=== PATIENT | female | born 1940 | race Caucasian/White ===

== ENCOUNTER 2023-03-30 18:39 | Inpatient (IN) ==
[2023-03-30 19:46] LABS: Basophils # (Auto) 0.04 K/mcL (0.00-0.30); Basophils % (Auto) 0.3 % (0.0-2.0); Eosinophils # (Auto) 0.03 K/mcL (0.00-0.70); Eosinophils % (Auto) 0.2 % (0.0-7.0); Hematocrit 34.6 % (34.1-44.9); Hemoglobin 11.7 g/dL (11.2-15.7); Lymphocytes # (Auto) 0.64 K/mcL (1.50-4.80); Lymphocytes % (Auto) 5.3 % (15.5-49.0); Mean Cell Volume 98.9 fL (80.0-100.0); Mean Corpuscular HGB Conc 33.8 g/dL (31.0-36.0); Mean Platelet Volume 10.2 fL (8.8-12.5); Monocytes # (Auto) 0.85 K/mcL (0.10-0.90); Neutrophils % (Auto) 86.7 % (38.0-78.0); Platelet Count 306 K/mcL (140-440); WBC 12.2 K/mcL (4.5-11.0)
--- NOTE | 2023-03-30 19:55 | Emergency Department Note ---
SOB HPI General Chief Complaint: Shortness of Breath/Dyspnea Stated Complaint: SOB Time Seen by Provider: 03/30/23 18:50 Source: patient Mode of arrival: ambulatory Limitations: no limitations History of Present Illness HPI Narrative: Narrative: Patient presents to the ED with complaints of shortness of breath for the past week. She reports a history of pulmonary fibrosis. States she used to be on supplemental oxygen via nasal cannula continuously but was taken off a year ago by her insurance that they state that she no longer needed it. Patient went to [facility] a few days ago and they did a chest x-ray and they advised her that she had some fluid on her heart so she went over to [facility] where she was admitted to the hospital and discharged on 03/28/2023. At that time she was found to have elevated troponins and found to be in CHF exacerbation. Patient was not have any chest pains at that time. Patient had her Lasix increased to twice a day x3 days. She was discharged home. Patient states that her pulse ox was reading 84% today but then she changed the batteries and it was up to 97%. She states whenever she walks she gets extremely tired and short of breath. She states that she had nausea and vomiting which subsided yesterday as she has not vomited today. She denies any fever, chills, cardiac chest pain, heart palpitation, abdominal pain, diarrhea, dysuria, hematuria, urinary frequency. She does report a cough. Patient denies any other alleviating or aggravating factors. Related Data Home Medications Medication Instructions Recorded Confirmed prednisone 5 mg tablet 5 mg PO QDAY 04/27/15 03/27/23 coenzyme Q10 300 mg capsule 300 mg PO QDAY 06/03/17 03/27/23 cyanocobalamin (vitamin B-12) 5,000 mcg PO QDAY 09/04/17 03/27/23 1,000 mcg tablet (Vitamin B-12) allopurinol 300 mg tablet 300 mg PO QDAY 12/29/19 03/27/23 rosuvastatin 5 mg tablet 5 mg PO QDAY 06/05/22 03/27/23 cholecalciferol (vitamin D3) 25 25 mcg PO QDAY 07/30/22 03/27/23 mcg (1,000 unit) capsule (Vitamin D3) metoprolol succinate 25 mg 25 mg PO QDAY 07/30/22 03/27/23 tablet,extended release 24 hr denosumab 60 mg/mL subcutaneous 60 mg subcut .[id number] 01/21/23 03/27/23 syringe (Prolia) omeprazole 20 mg capsule,delayed 20 mg PO QDAY PRN Heartburn 01/21/23 03/27/23 release Aspirin 81 mg PO QDAY 03/24/23 03/27/23 docusate sodium 100 mg capsule 100 mg PO BID PRN 03/24/23 03/27/23 Previous Rx's Medication Instructions Recorded Four-wheeled walker with seat #1 ea 02/01/21 acetaminophen 500 mg tablet 1,000 mg PO Q8 #90 tabs 08/06/22 furosemide 40 mg tablet (Lasix) 40 mg PO QDAY #90 tabs 08/21/22 potassium chloride 10 mEq 10 meq PO QDAY #90 tabs 10/17/22 tablet,extended release metformin 500 mg tablet,extended 500 mg PO QPM #90 tabs 10/23/22 release 24 hr lisinopril 10 mg tablet 10 mg PO QDAY #90 tabs 01/21/23 levothyroxine 75 mcg tablet 75 mcg PO QAM #90 tabs 01/29/23 methocarbamol 500 mg tablet 500 mg PO TIDP PRN Muscle Spasm 01/30/23 #20 tabs polyethylene glycol 3350 17 gram 17 g PO DAILYP PRN Constipation 01/30/23 oral powder packet (HealthyLax) #14 ea montelukast 10 mg tablet 10 mg PO QDAY #30 tabs 02/26/23 tramadol 50 mg tablet 50 - 100 mg PO Q4HP PRN Pain #60 03/18/23 tabs Allergies Allergy/AdvReac Type Severity Reaction Status Date / Time oxycodone AdvReac Intermediate Other Verified 03/30/23 18:45 Penicillins AdvReac Intermediate syncope Verified 03/30/23 18:45 diphenhydramine AdvReac Mild delirium Verified 03/30/23 18:45 [From Benadryl] Erythromycin Base AdvReac Mild Nausea Verified 03/30/23 18:45 fenofibrate AdvReac Mild leg cramps Verified 03/30/23 18:45 dapsone AdvReac Unknown Unknown Verified 03/30/23 18:45 Review of Systems ROS ROS Narrative: Narrative: All systems ED: reviewed and negative except as stated. [facility] Narrative Patient History Narrative: Narrative: Medical/Surgical/Family History All Active Problems (Updated 03/30/23 @ 20:31 by Elvis Baer DO) CHF exacerbation (Acute) Exertional dyspnea (Acute) Acute respiratory failure with hypoxia (Acute) Pulmonary hypertension (Chronic) Allergy (Chronic) Productive cough (Acute) Chest congestion (Acute) Shortness of breath (Acute) Anemia (Chronic) Chronic obstructive pulmonary disease (Chronic) Benign neoplasm of colon (Chronic) Connective tissue disease (Chronic) Diabetes mellitus, type II (Chronic) Fall (Chronic 12/26/14) Hematuria (Chronic) Hypercholesterolemia (Chronic 01/26/15) Hypertension, essential (Chronic) Joint pain (Chronic 12/28/14) Menopausal and postmenopausal disorder (Chronic) Osteoarthritis (Chronic) Osteoporosis (Chronic) Pemphigus (Chronic) Pain in joint, shoulder region (Chronic) Congenital abnormality (Chronic) History of (Chronic) History of removal of cyst (Chronic) History of intraocular lens implant (Chronic) Compression fracture (Chronic) Hemochromatosis (Chronic) Vitamin D deficiency (Chronic) 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) Right orbit fracture (Chronic) Right rib fracture (Chronic) CHF (congestive heart failure) (Chronic) Bullous pemphigoid (Chronic) Hyperparathyroidism (Chronic) Pulmonary fibrosis (Chronic) Laceration (Chronic) CKD stage G1/A1, GFR > 90 and albumin creatinine ratio <30 mg/g (Chronic) Familial hemochromatosis (Chronic) CKD stage G4/A2, GFR 15-29 and albumin creatinine ratio 30-299 mg/g (Chronic) Medicare annual wellness visit, subsequent (Chronic) Right knee DJD (Chronic) Annual physical exam (Chronic) Hypothyroidism (Chronic) Dyslipidemia (Chronic) Elevated serum creatinine (Chronic) Special needs due to difficulty walking unassisted (Chronic) 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, sacral and sacrococcygeal region (Chronic) Radiculopathy, lumbar region (Acute) Hypercalcemia (Acute) Bilateral knee pain (Acute) Primary hyperparathyroidism (Chronic) CKD stage G3b/A1, GFR 30-44 and albumin creatinine ratio <30 mg/g (Chronic) Influenza A (Acute) Mixed sleep apnea (Chronic) Complex sleep apnea syndrome (Chronic) Chronic pain (Acute) Friction burn (Acute) Morbilliform rash (Acute) Hypocalciuric hypercalcemia (Acute) CKD (chronic kidney disease) stage 4, GFR 15-29 ml/min (Acute) Elevated parathyroid hormone (Acute) GERD (gastroesophageal reflux disease) (Acute) Odynophagia (Acute) Back injury (Acute) Status post left knee surgery (Acute) Age-related osteoporosis with current pathological fracture, vertebra(e), initial encounter for fracture (Acute) Thoracic back pain (Acute) Rhinitis (Chronic) Post-nasal drip (Chronic) Medical History Age-related osteoporosis with current pathological fracture, vertebra(e), initia l encounter for fracture Anemia Arthropathy of left sacroiliac joint Benign neoplasm of colon Bilateral knee pain Bullous pemphigoid Continues on 5 mg a day of prednisone Was treated with steroids and dapsone in the past Patient cannot recall a triggering event or medication -is biopsy-proven CHF (congestive heart failure) Chronic obstructive pulmonary disease Chronic pain CKD stage G1/A1, GFR > 90 and albumin creatinine ratio <30 mg/g 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 L4-5 w/sed 06/08/201910/24 Vertebro Aug. T12 w/sed 10/25/2015 Family History Mother , 54 Cerebrovascular accident Diabetes mellitus NOS Essential hypertension Father , 84 Malignant neoplasm of lung Social History Smoking Status: Former smoker Alcohol Intake Frequency: holiday/special occasion only Substance Use: does not use Exam Narrative Narrative: Narrative: General Limitations: no limitations General appearance: Absent in distress ENT ENT: Present normal oropharynx and mucous membranes moist Respiratory Respiratory: Present normal lung sounds bilaterally; Absent respiratory distress, rales/crackles, wheezes, stridor or accessory muscle use Cardiovascular Cardiovascular: Present regular rate and normal rhythm Adbominal Abdominal: Present soft; Absent tenderness Extremities Extremities: Present normal capillary refill Back Back: Absent CVA tenderness (R) or CVA tenderness (L) Neurological Neurological: Present alert and oriented X3 Psychiatric Psychiatric: Present normal affect and normal mood Skin Skin: Present warm (WNL); Absent intact Course Course Course Narrative: Patient was evaluated for complaints of shortness of breath. I received patient's discharge summary from [facility] and reviewed the summary along with the labs that were done at that time. Repeat x-ray was obtained today with image reviewed myself which is so CHF changes unremarkable from previous chest x-ray. Labs were obtained show the patient BNP was up over 3300. Renal function was near baseline. Patient's white cell count was unchanged from previous slightly elevated at 12. Procalcitonin was slightly elevated. Chest x-ray was negative for pneumonia. Patient's lactic acid within normal limits. Her pH was also within normal limits. Patient was maintaining adequate oxygen saturation on room air at rest. However when we got to ambulate her patient dropped below 87% on room air and it took her several minutes to recover back up above 90%. Believe patient to have respiratory failure secondary to CHF exacerbation. Case was discussed with hospitalist who has agreed to admit the patient. Plan of care was discussed with patient and family and they expressed verbal understanding and agreement of plan Reevaluation(s) Reevaluation #1: Patient reynold hemodynamic stable. No new complaints at this time. Time: 20:01 Consultations Consultation #1: Case discussed with hospitalist, Dr. Sanders, who has agreed to admit the patient Time: 20:45 Vital Signs Vital signs: Vital Signs Temperature 98.3 F 03/30/23 18:41 Pulse Rate 90 03/30/23 18:41 Respiratory Rate 18 03/30/23 18:41 Blood Pressure 130/63 03/30/23 18:41 Pulse Oximetry (%) 95 03/30/23 18:41 Oxygen Delivery Method Room Air 03/30/23 18:41 Temperature 98.3 F 03/30/23 18:41 Pulse Rate 78 03/30/23 19:47 Respiratory Rate 20 03/30/23 19:47 Blood Pressure 130/57 03/30/23 19:47 Pulse Oximetry (%) 91 03/30/23 19:47 Oxygen Delivery Method Room Air 03/30/23 18:41 MDM MDM Narrative Medical decision making narrative: Narrative: Differential Diagnosis Differential Diagnosis: CHF exacerbation, pneumonia, PE Medical Records Medical records reviewed: Yes I reviewed the patient's medical records. Lab Data Lab results reviewed: Yes I reviewed the patient's lab results. 03/30/23 19:10 Labs: Lab Results 03/30/23 03/30/23 03/30/23 Range/Units 19:10 19:10 19:10 WBC 12.2 H (4.5-11.0) K/mcL RBC 3.50 L (3.59-5.38) M/mcL Hgb 11.7 (11.2-15.7) g/dL Hct 34.6 (34.1-44.9) % POC Hct (36-48) MCV 98.9 (80.0-100.0) fL MCH 33.4 (26.0-34.0) pg MCHC 33.8 (31.0-36.0) g/dL RDW 14.0 (11.5-14.5) % Plt Count 306 (140-440) K/mcL MPV 10.2 (8.8-12.5) fL Immature Gran % (Auto) 0.5 (0.0-0.5) % Neut % (Auto) 86.7 H (38.0-78.0) % Lymph % (Auto) 5.3 L (15.5-49.0) % [place] % (Auto) 7.0 (1.0-12.0) % Eos % (Auto) 0.2 (0.0-7.0) % Baso % (Auto) 0.3 (0.0-2.0) % Lymph # (Auto) 0.64 L (1.50-4.80) K/mcL [place] # (Auto) 0.85 (0.10-0.90) K/mcL Eos # (Auto) 0.03 (0.00-0.70) K/mcL Baso # (Auto) 0.04 (0.00-0.30) K/mcL Immature Gran # 0.06 H (0.00-0.05) K/mcl Absolute Neutrophils 10.55 H (1.80-8.00) K/mcL POC VBG pH 7.47 H (7.32-7.42) POC VBG pCO2 at Temp 38.2 L (41-51) POC VBG pO2 21 L (25-40) POC VBG HCO3 27.8 (24-28) POC VBG Total CO2 29.0 (25-29) POC Venous O2 Sat 40.0 (40-70) POC VBG Base Excess 4.0 H* (-2-2) VBG Lactic Acid 1.7 (0.5-2) POC Sodium (133-145) POC Potassium (3.3-5.1) POC Chloride (96-108) POC Total CO2 (22-30) POC BUN (6-20) POC Creatinine (0.6-1.2) POC Glucose (70-105) POC WB Ioniz Calcium (1.16-1.32) NT-Pro-B Natriuret Pep (<450.0) pg/mL Procalcitonin 0.94 H (<0.10) ng/mL POC Troponin I (0.00-0.08) 03/30/23 03/30/23 03/30/23 Range/Units 19:21 19:53 20:06 WBC (4.5-11.0) K/mcL RBC (3.59-5.38) M/mcL Hgb (11.2-15.7) g/dL Hct (34.1-44.9) % POC Hct 37.0 38.0 (36-48) MCV (80.0-100.0) fL MCH (26.0-34.0) pg MCHC (31.0-36.0) g/dL RDW (11.5-14.5) % Plt Count (140-440) K/mcL MPV (8.8-12.5) fL Immature Gran % (Auto) (0.0-0.5) % Neut % (Auto) (38.0-78.0) % Lymph % (Auto) (15.5-49.0) % [place] % (Auto) (1.0-12.0) % Eos % (Auto) (0.0-7.0) % Baso % (Auto) (0.0-2.0) % Lymph # (Auto) (1.50-4.80) K/mcL [place] # (Auto) (0.10-0.90) K/mcL Eos # (Auto) (0.00-0.70) K/mcL Baso # (Auto) (0.00-0.30) K/mcL Immature Gran # (0.00-0.05) K/mcl Absolute Neutrophils (1.80-8.00) K/mcL POC VBG pH (7.32-7.42) POC VBG pCO2 at Temp (41-51) POC VBG pO2 (25-40) POC VBG HCO3 (24-28) POC VBG Total CO2 (25-29) POC Venous O2 Sat (40-70) POC VBG Base Excess (-2-2) VBG Lactic Acid (0.5-2) POC Sodium 133 137 (133-145) POC Potassium 7.9 H* 4.1 (3.3-5.1) POC Chloride 101 101 (96-108) POC Total CO2 28.0 28.0 (22-30) POC BUN 77 H 57 H (6-20) POC Creatinine 1.7 H 1.7 H (0.6-1.2) POC Glucose 143 H 132 H (70-105) POC WB Ioniz Calcium 0.98 L 1.01 L (1.16-1.32) NT-Pro-B Natriuret Pep 3301.0 H (<450.0) pg/mL Procalcitonin (<0.10) ng/mL POC Troponin I (0.00-0.08) / Range/Units 20:06 WBC (4.5-11.0) K/mcL RBC (3.59-5.38) M/mcL Hgb (11.2-15.7) g/dL Hct (34.1-44.9) % POC Hct (36-48) MCV (80.0-100.0) fL MCH (26.0-34.0) pg MCHC (31.0-36.0) g/dL RDW (11.5-14.5) % Plt Count (140-440) K/mcL MPV (8.8-12.5) fL Immature Gran % (Auto) (0.0-0.5) % Neut % (Auto) (38.0-78.0) % Lymph % (Auto) (15.5-49.0) % [place] % (Auto) (1.0-12.0) % Eos % (Auto) (0.0-7.0) % Baso % (Auto) (0.0-2.0) % Lymph # (Auto) (1.50-4.80) K/mcL [place] # (Auto) (0.10-0.90) K/mcL Eos # (Auto) (0.00-0.70) K/mcL Baso # (Auto) (0.00-0.30) K/mcL Immature Gran # (0.00-0.05) K/mcl Absolute Neutrophils (1.80-8.00) K/mcL POC VBG pH (7.32-7.42) POC VBG pCO2 at Temp (41-51) POC VBG pO2 (25-40) POC VBG HCO3 (24-28) POC VBG Total CO2 (25-29) POC Venous O2 Sat (40-70) POC VBG Base Excess (-2-2) VBG Lactic Acid (0.5-2) POC Sodium (133-145) POC Potassium (3.3-5.1) POC Chloride (96-108) POC Total CO2 (22-30) POC BUN (6-20) POC Creatinine (0.6-1.2) POC Glucose (70-105) POC WB Ioniz Calcium (1.16-1.32) NT-Pro-B Natriuret Pep (<450.0) pg/mL Procalcitonin (<0.10) ng/mL POC Troponin I 0.05 (0.00-0.08) Radiology Data Radiology results reviewed: Yes I reviewed the patient's radiology results. Radiology results narrative: Chest x-ray obtained with image reviewed myself, consistent with CHF EKG Data EKG #1: EKG attestation: Yes I reviewed and interpreted this EKG. EKG shows normal: sinus rhythm Rate: normal Rhythm: NSR [place]/QRS: normal ST segment elevation in: None ST segment depression in: None QTc: normal QRS morphology: Present normal Interpretation: no acute changes Core Measures AMI Core Measures Followed: Yes Discharge Plan Patient/Caregiver Discharge Instructions Pt seen by SIGN WRITER HAND/PA only: No Clinical Impression: Exertional dyspnea, Acute respiratory failure with hypoxia CHF exacerbation Qualifiers: Heart failure type: unspecified Qualified Code(s): I50.9 - Heart failure, unspecified Patient Disposition: Xfer As Outpt/Obs ([facility]) Condition: Fair Follow up with: Hipolito Bennett MD [Primary Care Provider] - Prescriptions: No Action furosemide [Lasix] 40 mg tablet 40 mg PO QDAY Qty: 90 1RF potassium chloride 10 mEq tablet extended release 10 meq PO QDAY Qty: 90 1RF metformin 500 mg tablet extended release 24 hr 500 mg PO QPM Qty: 90 1RF lisinopril 10 mg tablet 10 mg PO QDAY Qty: 90 4RF levothyroxine 75 mcg tablet 75 mcg PO QAM Qty: 90 1RF montelukast 10 mg tablet 10 mg PO QDAY Qty: 30 12RF prednisone 5 mg tablet 5 mg PO QDAY Rx Instructions: administer with food or milk (DME) Four-wheeled walker with seat See Rx Instructions .Route .MEDSUPPLY Qty: 1 0RF Rx Instructions: As directed rosuvastatin 5 mg tablet 5 mg PO QDAY tramadol 50 mg tablet 50 - 100 mg PO Q4HP PRN (Reason: Pain) Qty: 60 0RF coenzyme Q10 300 mg capsule 300 mg PO QDAY cyanocobalamin (vitamin B-12) [Vitamin B-12] 1,000 mcg tablet 5,000 mcg PO QDAY allopurinol 300 mg tablet 300 mg PO QDAY Aspirin 81 mg PO QDAY docusate sodium 100 mg capsule 100 mg PO BID PRN metoprolol succinate 25 mg Tablet Extended Release 24 Hr 25 mg PO QDAY cholecalciferol (vitamin D3) [Vitamin D3] 25 mcg (1,000 unit) Capsule 25 mcg PO QDAY acetaminophen 500 mg Tablet 1,000 mg PO Q8 Qty: 90 0RF omeprazole 20 mg capsule,delayed release(DR/EC) 20 mg PO QDAY PRN (Reason: Heartburn) Rx Instructions: take 30 minutes prior to supper. Prolia 60 mg/mL Syringe 60 mg SUBCUT .[id number] methocarbamol 500 mg Tablet 500 mg PO TIDP PRN (Reason: Muscle Spasm) Qty: 20 0RF polyethylene glycol 3350 [HealthyLax] 17 gram Powder In Packet 17 g PO DAILYP PRN (Reason: Constipation) Qty: 14 0RF
[2023-03-30 19:58] LABS: POC Calcium, Ionized 0.98 (1.16-1.32); POC Creatinine 1.7 (0.6-1.2); POC Potassium 7.9 (3.3-5.1)
--- NOTE | 2023-03-30 20:00 | XRay Report ---
HISTORY: Short of breath FINDINGS: There is moderate pulmonary fibrosis throughout both lung todd. This is a chronic finding. No consolidating infiltrate has developed. There is no apparent mass. No pleural effusion is present. The heart is mildly enlarged and has diminished in size since 03/27/23. No adenopathy is detected.. Moderate osteoarthritis is present in both shoulders. IMPRESSION: Moderate pulmonary fibrosis with little change. Improved cardiomegaly Interpreted and Authenticated by: Gautam Shaffer 03/30/23
[2023-03-30 20:11] LABS: POC Calcium, Ionized 1.01 (1.16-1.32); POC Creatinine 1.7 (0.6-1.2); POC Potassium 4.1 (3.3-5.1)
--- NOTE | 2023-03-30 21:20 | Internal Med History&Physical ---
HPI History of Present Illness Patient information: Note initiated : 03/30/23 at 9:08 pm Service Date, if different from initiated Date: [] Patient: Enma Dodson a 82 y/o F admitted on for Shortness of breath. Chief Complaint: [] History of present illness: Ms. Dodson is a 82 year old F Presents ED with generalized weakness and shortness of breath. This is been going on for about a week. She first saw her hog handler and was sent to the ER over concerns for possible CHF. She went to the ED and was evaluated and told to increase her Lasix for a few days. She still feels short of breath so came back into the ED. In the ED she was evaluated she was fine on room air as far as her oxygen but when she ambulated she dropped down to 85% per my discussion with the ER physician and a tech 5 minutes for to come up to 90. Family is concerned about her going home. She is afebrile and has not complained of fevers but complains of chills. She does also have had nausea and vomiting she has a headache. She is got rhinorrhea and sinus congestion. She has had a productive cough mostly of clear sputum but today she had thick green sputum per her granddaughter. She denies any increased water weight. Chest x-ray shows fibrosis similar to previous no obvious infiltrate or edema. She had a cardiac spec study in May 2022 which showed an EF of 45%, an echo 5-6 weeks prior to that showed ejection fraction of 60%. She had a rapid flu and COVID in ED which were negative. She had a mild leukocytosis at 12.7. Her procalcitonin ED was elevated at 0.9. She was on oxygen in the past that was years ago but has not had been on it in a while. Although she states over the past months she feels like she has been more short of breath. Review of Systems: Pertinent positives as above. Denies headache/fever//chest or abdominal pain/diarrhea. Remaining 10 point review of system reviewed negative. PHYSICAL EXAM General: Alert, Awake, No acute Distress, obese Eyes/N/T: EOMI, no scleral icterus, PERRL, dry MM Head/Neck: neck supple, full ROM, normocephalic atraumatic CV: RRR, No murmurs, normal s1/s2 Pulm: fines rales b/l, mildly diminished, no wheezing, no respiratory distress Abd: soft, nontender, +BS x4 Ext: no clubbing/cyanosis, trace b/l LE edema, nontender Neuro: Alert, CN 2-12 grossly intact, no focal deficits, moves all extremities, , sensations intact b/l upper/lower Psychiatric: Skin: warm/dry, normal color PFSH PFSH All Active Problems (Updated 03/30/23 @ 20:31 by Elvis Baer DO) CHF exacerbation (Acute) Exertional dyspnea (Acute) Acute respiratory failure with hypoxia (Acute) Pulmonary hypertension (Chronic) Allergy (Chronic) Productive cough (Acute) Chest congestion (Acute) Shortness of breath (Acute) Anemia (Chronic) Chronic obstructive pulmonary disease (Chronic) Benign neoplasm of colon (Chronic) Connective tissue disease (Chronic) Diabetes mellitus, type II (Chronic) Fall (Chronic 12/26/14) Hematuria (Chronic) Hypercholesterolemia (Chronic 01/26/15) Hypertension, essential (Chronic) Joint pain (Chronic 12/28/14) Menopausal and postmenopausal disorder (Chronic) Osteoarthritis (Chronic) Osteoporosis (Chronic) Pemphigus (Chronic) Pain in joint, shoulder region (Chronic) Congenital abnormality (Chronic) History of (Chronic) History of removal of cyst (Chronic) History of intraocular lens implant (Chronic) Compression fracture (Chronic) Hemochromatosis (Chronic) Vitamin D deficiency (Chronic) 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) Right orbit fracture (Chronic) Right rib fracture (Chronic) CHF (congestive heart failure) (Chronic) Bullous pemphigoid (Chronic) Hyperparathyroidism (Chronic) Pulmonary fibrosis (Chronic) Laceration (Chronic) CKD stage G1/A1, GFR > 90 and albumin creatinine ratio <30 mg/g (Chronic) Familial hemochromatosis (Chronic) CKD stage G4/A2, GFR 15-29 and albumin creatinine ratio 30-299 mg/g (Chronic) Medicare annual wellness visit, subsequent (Chronic) Right knee DJD (Chronic) Annual physical exam (Chronic) Hypothyroidism (Chronic) Dyslipidemia (Chronic) Elevated serum creatinine (Chronic) Special needs due to difficulty walking unassisted (Chronic) 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, sacral and sacrococcygeal region (Chronic) Radiculopathy, lumbar region (Acute) Hypercalcemia (Acute) Bilateral knee pain (Acute) Primary hyperparathyroidism (Chronic) CKD stage G3b/A1, GFR 30-44 and albumin creatinine ratio <30 mg/g (Chronic) Influenza A (Acute) Mixed sleep apnea (Chronic) Complex sleep apnea syndrome (Chronic) Chronic pain (Acute) Friction burn (Acute) Morbilliform rash (Acute) Hypocalciuric hypercalcemia (Acute) CKD (chronic kidney disease) stage 4, GFR 15-29 ml/min (Acute) Elevated parathyroid hormone (Acute) GERD (gastroesophageal reflux disease) (Acute) Odynophagia (Acute) Back injury (Acute) Status post left knee surgery (Acute) Age-related osteoporosis with current pathological fracture, vertebra(e), initial encounter for fracture (Acute) Thoracic back pain (Acute) Rhinitis (Chronic) Post-nasal drip (Chronic) Medical History Age-related osteoporosis with current pathological fracture, vertebra(e), initial encounter for fracture Anemia Arthropathy of left sacroiliac joint Benign neoplasm of colon Bilateral knee pain Bullous pemphigoid Continues on 5 mg a day of prednisone Was treated with steroids and dapsone in the past Patient cannot recall a triggering event or medication -is biopsy-proven CHF (congestive heart failure) Chronic obstructive pulmonary disease Chronic pain CKD stage G1/A1, GFR > 90 and albumin creatinine ratio <30 mg/g 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 L4-5 w/sed 06/08/201910/24 Vertebro Aug. T12 w/sed 10/25/2015 Family History Mother , 54 Cerebrovascular accident Diabetes mellitus NOS Essential hypertension Father , 84 Malignant neoplasm of lung Social History marital status: education level: high school occupational status: retired other: 2 children and 2 grandchildren smoking status: Former smoker smoking status start date: 11/10/1958 smoking status stop date: 11/10/06 alcohol intake frequency: holiday/special occasion only substance use type: does not use MEDS/ALLERGIES Home Medications and Allergies Home Medications Medication Instructions Recorded Confirmed Type prednisone 5 mg tablet 5 mg PO QDAY 04/27/15 03/27/23 History coenzyme Q10 300 mg capsule 300 mg PO QDAY 06/03/17 03/27/23 History cyanocobalamin (vitamin B-12) 5,000 mcg PO QDAY 09/04/17 03/27/23 History 1,000 mcg tablet (Vitamin B-12) allopurinol 300 mg tablet 300 mg PO QDAY 12/29/19 03/27/23 History Four-wheeled walker with seat #1 ea 02/01/21 03/27/23 Rx rosuvastatin 5 mg tablet 5 mg PO QDAY 06/05/22 03/27/23 History cholecalciferol (vitamin D3) 25 25 mcg PO QDAY 07/30/22 03/27/23 History mcg (1,000 unit) capsule (Vitamin D3) metoprolol succinate 25 mg 25 mg PO QDAY 07/30/22 03/27/23 History tablet,extended release 24 hr acetaminophen 500 mg tablet 1,000 mg PO Q8 #90 tabs 08/06/22 03/27/23 Rx furosemide 40 mg tablet (Lasix) 40 mg PO QDAY #90 tabs 08/21/22 03/27/23 Rx potassium chloride 10 mEq 10 meq PO QDAY #90 tabs 10/17/22 03/27/23 Rx tablet,extended release metformin 500 mg tablet,extended 500 mg PO QPM #90 tabs 10/23/22 03/27/23 Rx release 24 hr denosumab 60 mg/mL subcutaneous 60 mg subcut .[id number] 01/21/23 03/27/23 History syringe (Prolia) lisinopril 10 mg tablet 10 mg PO QDAY #90 tabs 01/21/23 03/27/23 Rx omeprazole 20 mg capsule,delayed 20 mg PO QDAY PRN Heartburn 01/21/23 03/27/23 History release levothyroxine 75 mcg tablet 75 mcg PO QAM #90 tabs 01/29/23 03/27/23 Rx methocarbamol 500 mg tablet 500 mg PO TIDP PRN Muscle Spasm 01/30/23 03/27/23 Rx #20 tabs polyethylene glycol 3350 17 gram 17 g PO DAILYP PRN Constipation 01/30/23 03/27/23 Rx oral powder packet (HealthyLax) #14 ea montelukast 10 mg tablet 10 mg PO QDAY #30 tabs 02/26/23 03/27/23 Rx tramadol 50 mg tablet 50 - 100 mg PO Q4HP PRN Pain #60 03/18/23 03/27/23 Rx tabs Aspirin 81 mg PO QDAY 03/24/23 03/27/23 History docusate sodium 100 mg capsule 100 mg PO BID PRN 03/24/23 03/27/23 History Allergies Allergy/AdvReac Type Severity Reaction Status Date / Time oxycodone AdvReac Intermediate Other Verified 03/30/23 18:45 Penicillins AdvReac Intermediate syncope Verified 03/30/23 18:45 diphenhydramine AdvReac Mild delirium Verified 03/30/23 18:45 [From Benadryl] Erythromycin Base AdvReac Mild Nausea Verified 03/30/23 18:45 fenofibrate AdvReac Mild leg cramps Verified 03/30/23 18:45 dapsone AdvReac Unknown Unknown Verified 03/30/23 18:45 EXAM Constitutional Vitals: Temp Pulse Resp BP Pulse Ox O2 Del Method 98.3 F 87 24 H 152/77 94 Room Air 03/30/23 18:41 03/30/23 20:47 03/30/23 21:06 03/30/23 21:02 03/30/23 20:47 03/30/23 18:41 DATA Data Completed and Pending Labs: Labs from last 24 hours 03/30/23 03/30/23 03/30/23 20:06 20:06 19:53 WBC RBC Hgb Hct POC Hct 38.0 37.0 MCV MCH MCHC RDW Plt Count MPV Immature Gran % (Auto) Neut % (Auto) Lymph % (Auto) [place] % (Auto) Eos % (Auto) Baso % (Auto) Lymph # (Auto) [place] # (Auto) Eos # (Auto) Baso # (Auto) Immature Gran # Absolute Neutrophils POC VBG pH POC VBG pCO2 at Temp POC VBG pO2 POC VBG HCO3 POC VBG Total CO2 POC Venous O2 Sat POC VBG Base Excess VBG Lactic Acid POC Sodium 137 133 POC Potassium 4.1 7.9 H* POC Chloride 101 101 POC Total CO2 28.0 28.0 POC BUN 57 H 77 H POC Creatinine 1.7 H 1.7 H POC Glucose 132 H 143 H POC WB Ioniz Calcium 1.01 L 0.98 L NT-Pro-B Natriuret Pep Procalcitonin POC Troponin I 0.05 03/30/23 03/30/23 03/30/23 19:21 19:10 19:10 WBC RBC Hgb Hct POC Hct MCV MCH MCHC RDW Plt Count MPV Immature Gran % (Auto) Neut % (Auto) Lymph % (Auto) [place] % (Auto) Eos % (Auto) Baso % (Auto) Lymph # (Auto) [place] # (Auto) Eos # (Auto) Baso # (Auto) Immature Gran # Absolute Neutrophils POC VBG pH 7.47 H POC VBG pCO2 at Temp 38.2 L POC VBG pO2 21 L POC VBG HCO3 27.8 POC VBG Total CO2 29.0 POC Venous O2 Sat 40.0 POC VBG Base Excess 4.0 H* VBG Lactic Acid 1.7 POC Sodium POC Potassium POC Chloride POC Total CO2 POC BUN POC Creatinine POC Glucose POC WB Ioniz Calcium NT-Pro-B Natriuret Pep 3301.0 H Procalcitonin 0.94 H POC Troponin I 03/30/23 19:10 WBC 12.2 H RBC 3.50 L Hgb 11.7 Hct 34.6 POC Hct MCV 98.9 MCH 33.4 MCHC 33.8 RDW 14.0 Plt Count 306 MPV 10.2 Immature Gran % (Auto) 0.5 Neut % (Auto) 86.7 H Lymph % (Auto) 5.3 L [place] % (Auto) 7.0 Eos % (Auto) 0.2 Baso % (Auto) 0.3 Lymph # (Auto) 0.64 L [place] # (Auto) 0.85 Eos # (Auto) 0.03 Baso # (Auto) 0.04 Immature Gran # 0.06 H Absolute Neutrophils 10.55 H POC VBG pH POC VBG pCO2 at Temp POC VBG pO2 POC VBG HCO3 POC VBG Total CO2 POC Venous O2 Sat POC VBG Base Excess VBG Lactic Acid POC Sodium POC Potassium POC Chloride POC Total CO2 POC BUN POC Creatinine POC Glucose POC WB Ioniz Calcium NT-Pro-B Natriuret Pep Procalcitonin POC Troponin I A/P Narrative A/P Narrative: A: *Acute hypoxic respiratory failure: 2/2 underlying pulm fibrosis/copd + possible PNA *Possible PNA: *Pulmonary fibrosis/COPD: Follows with Dr. Lee, on prednisone *h/o CHF: *DM2: *HTN: *CKD IIIb-IV: *GERD: *Hypothyroidism: cont synthroid *CHERRY: cpap at home *Obesity pulm: BMI 31 *Generalized weakness/deconditioning: * P: -prn O2 and wean as able -IS/Acapella, prn nebs, RT -IV abx, pending BC/SC -strep ag -CT chest for better delineation of pulmonary parenchyma -UA -Monitor urine output/renal function -Monitor and replace electrolytes. -check tsh -cont lasix -cont home prednisone -SSI -Continue home CAMILO/BB -Home medication reconciliation -PT/OT -suspect pt needs home O2 for chronic pulmonary conditions -ppx: Lovenox / home ppi Time Spent With Patient Time: Total time spent is greater than 50% in coordination of care (as documented) at patient's floor/unit and/or counseling patient: Initial: Total time with patient: 75 - 90 minutes
[2023-03-30 21:47] LABS: ALT/SGPT 8 U/L (<40); AST/SGOT 16 U/L (<32); Albumin 3.3 gm/dL (3.2-5.2); Alkaline Phosphatase 75 U/L (39-117); Bilirubin,Direct < 0.2 mg/dL (0-0.3); Bilirubin,Total 0.4 mg/dL (0.1-1.0); Blood Urea Nitrogen 46 mg/dL (8-23); Calcium 8.7 mg/dL (8.6-10.4); Carbon Dioxide 23 mmol/L (22-30); Chloride 100 mmol/L (96-108); Globulin 3.4 gm/dL (2.2-3.7); Glomerular Filtration Rate 32; Glucose 137 mg/dL (70-105); Lactate Dehydrogenase 218 U/L (135-225); Phosphorous 2.3 mg/dL (2.5-4.5); Triglycerides 108 mg/dL (<150); Uric Acid 5.8 mg/dL (2.5-8.0)
[2023-03-30] MEDS ORDERED: IPRATROPIUM/ALBUTEROL 3 ML AMPUL.NEB NEB PRN (22:14)
[2023-03-30] MEDS ORDERED: POTASSIUM CHLORIDE 40 MEQ in DEXTROSE 5% IN WATER 500 ML IV PRN (22:14)
[2023-03-30] MEDS ORDERED: LABETALOL 5 MG/ML ML IV PRN (22:14)
[2023-03-30] MEDS ORDERED: POTASSIUM CHLORIDE 20 MEQ TABLET PO PRN ×2 (22:14)
[2023-03-30] MEDS ORDERED: SENNOSIDES 1 TABLET PO PRN (22:14)
[2023-03-30] MEDS ORDERED: cefTRIAXone 1 GM in DEXTROSE 5% IN WATER 50 ML IV SCH (22:14)
[2023-03-30] MEDS ORDERED: ONDANSETRON 4 MG/2 ML VIAL IV PRN (22:14)
[2023-03-30] MEDS ORDERED: POLYETHYLENE GLYCOL 3350 17 GM PACKET PO PRN (22:14)
[2023-03-30] MEDS ORDERED: DEXTROSE 31 GM ORAL.SUSP PO PRN (22:14)
[2023-03-30] MEDS ORDERED: MAGNESIUM SULFATE 2 GM/50 ML BAG IV PRN (22:14)
[2023-03-30] MEDS ORDERED: DEXTROSE 50% 50 ML VIAL IV PRN (22:14)
[2023-03-30] MEDS ORDERED: cefTRIAXone 1 GM VIAL ONE (22:26)
[2023-03-30] MEDS ORDERED: AZITHROMYCIN 500 MG VIAL IV ONE (22:26)
[2023-03-30] MEDS ORDERED: IPRATROPIUM/ALBUTEROL 3 ML AMPUL.NEB NEB ONE (22:28)
[2023-03-30] MEDS: IPRATROPIUM/ALBUTEROL 3 ML AMPUL.NEB NEB SCH (22:30)
[2023-03-30 22:58] LABS: Appearance,Urine CLEAR (Clear); Bilirubin,Urine Negative (Negative); Color,Urine YELLOW; Culture Indicated,Urine No; Glucose,Urine (UA) Negative (Negative); Ketones,Urine Negative (Negative); Leukocyte Esterase,Urine 75 /uL (Negative); Mucus,Urine FEW /hpf; Nitrate,Urine Negative (Negative); Protein,Urine Negative (Negative); Specific Gravity,Urine 1.012 (1.000-1.035); Urine Amorphous Crystals FEW /hpf; Urine Blood Negative (Negative); Urine RBC < 1 /hpf (0-3); Urine Squamous Epithelial Cell < 1 /hpf (0-4); Urine Transitional Epi Cells < 1 /hpf (0-2); Urine WBC 6 /hpf (0-4); Urobilinogen,Urine Negative
[2023-03-30] MEDS: 0.9 % SODIUM CHLORIDE 10 ML SYRINGE IV SCH ×2 (23:08→23:53)
[2023-03-30] MEDS: AZITHROMYCIN 500 MG in DEXTROSE 5% IN WATER 250 ML IV SCH (23:52)
[2023-03-31] MEDS: ACETAMINOPHEN 325 MG TABLET PO PRN ×2 (02:22→22:15)
[2023-03-31] MEDS ORDERED: ACETAMINOPHEN 325 MG TABLET PO ONE (02:24)
[2023-03-31] MEDS: 0.9 % SODIUM CHLORIDE 10 ML SYRINGE IV SCH ×3 (04:38→20:41)
[2023-03-31 06:03] LABS: Hematocrit 31.5 % (34.1-44.9); Hemoglobin 10.9 g/dL (11.2-15.7); Mean Cell Volume 98.4 fL (80.0-100.0); Mean Corpuscular HGB Conc 34.6 g/dL (31.0-36.0); Mean Platelet Volume 9.9 fL (8.8-12.5); Platelet Count 273 K/mcL (140-440); Red Cell Distribution Width 13.9 % (11.5-14.5); WBC 12.7 K/mcL (4.5-11.0)
[2023-03-31] MEDS ORDERED: IPRATROPIUM/ALBUTEROL 3 ML AMPUL.NEB NEB ONE (06:06)
[2023-03-31] MEDS: IPRATROPIUM/ALBUTEROL 3 ML AMPUL.NEB NEB SCH ×4 (06:19→21:26)
[2023-03-31 06:25] LABS: ALT/SGPT 7 U/L (<40); AST/SGOT 12 U/L (<32); Albumin 2.8 gm/dL (3.2-5.2); Alkaline Phosphatase 64 U/L (39-117); Bilirubin,Direct 0.2 mg/dL (<0.3); Bilirubin,Total 0.6 mg/dL (0.1-1.0); Blood Urea Nitrogen 41 mg/dL (8-23); Calcium 8.4 mg/dL (8.6-10.4); Carbon Dioxide 24 mmol/L (22-30); Chloride 100 mmol/L (96-108); Globulin 2.8 gm/dL (2.2-3.7); Glomerular Filtration Rate 35; Glucose 159 mg/dL (70-105); Lactate Dehydrogenase 176 U/L (135-225); Phosphorous 1.8 mg/dL (2.5-4.5); Triglycerides 82 mg/dL (<150); Uric Acid 6.4 mg/dL (2.5-8.0)
[2023-03-31] MEDS: INSULIN LISPRO 1 UNIT/0.01 ML UNIT SQ SCH ×4 (07:18→20:41)
--- NOTE | 2023-03-31 07:22 | Internal Med Progress Note ---
SUBJECTIVE Subjective Patient information: Note initiated : 03/31/23 at 7:18 am Service Date, if different from initiated Date: [] Patient: Enma Ddoson a 82 y/o F admitted on 03/30/23 for Shortness of breath. Chief Complaint: [] Interval history: History of present illness: Ms. Dodson is a 82 year old F Presents ED with generalized weakness and shortness of breath. This is been going on for about a week. She first saw her linux systems administrator and was sent to the ER over concerns for possible CHF. She went to the ED and was evaluated and told to increase her Lasix for a few days. She still feels short of breath so came back into the ED. In the ED she was evaluated she was fine on room air as far as her oxygen but when she ambulated she dropped down to 85% per my discussion with the ER physician and a tech 5 minutes for to come up to 90. Family is concerned about her going home. She is afebrile and has not complained of fevers but complains of chills. She does also have had nausea and vomiting she has a headache. She is got rhinorrhe a and sinus congestion. She has had a productive cough mostly of clear sputum but today she had thick green sputum per her granddaughter. She denies any increased water weight. Chest x-ray shows fibrosis similar to previous no obvious infiltrate or edema. She had a cardiac spec study in May 2022 which showed an EF of 45%, an echo 5-6 weeks prior to that showed ejection fraction of 60%. She had a rapid flu and COVID in ED which were negative. She had a mild leukocytosis at 12.7. Her procalcitonin ED was elevated at 0.9. She was on oxygen in the past that was years ago but has not had been on it in a while. Although she states over the past months she feels like she has been more short of breath. 03/31 Patient denies fever chills nausea vomiting headache this morning. However the nurse did record a fever overnight. Patient says her cough seems to be loosening up a bit. No noticeable shortness of breath while at rest in bed. CT chest pending. Leukocytosis similar to yesterday. Hypophosphatemia Review of Systems: Pertinent positives as above. Denies headache/fever//chest or abdominal pain/diarrhea. PHYSICAL EXAM General: Alert, Awake, No acute Distress, obese Eyes/N/T: EOMI, no scleral icterus, Head/Neck: neck supple, full ROM, CV: RRR, No murmurs, Pulm: fines rales b/l, mildly diminished, no wheezing, no respiratory distress Abd: soft, nontender, +BS x4 Ext: no clubbing/cyanosis, trace b/l LE edema, nontender Neuro: Alert, no focal deficits, moves all extremities, , sensations intact b/l upper/lower Psychiatric: Skin: warm/dry, normal color Constitutional Vitals: Vital Signs Temp Pulse Resp BP Pulse Ox O2 Del Method 99.7 F H 87 17 114/68 95 Room Air 03/31/23 04:29 03/31/23 04:29 03/31/23 04:29 03/31/23 04:29 03/31/23 04:29 03/31/23 04:29 Period Temp Pulse Resp BP Sys/Duong Pulse Ox O2 Del Method O2 Flow Rate Last 24 Hr 98.3 F-101.5 F 36-97 16-26 114-152/56-85 84-96 Room Air-Room Air Intake and Output 03/30/23 03/31/23 03/31/23 19:59 03:59 11:59 Intake Total 300 400 Output Total 100 Balance 300 300 Weight 78.925 kg 80.422 kg Intake & Output: Intake & Output 03/30/23 03/31/23 03/31/23 19:59 03:59 11:59 Intake Total 300 400 Output Total 100 Balance 300 300 Weight 78.925 kg 80.422 kg Intake: IV 300 Zithromax 500 mg In Dextrose 5% 250 in Water 250 ml @ 250 mls/hr IV Q24H DOUG Rx#:[id number] Rocephin 1 gm In Dextrose 5% in 50 Water 50 ml @ 100 mls/hr IV Q24H DOUG Rx#:[id number] Oral 400 Output: Void Amount 100 Other: Urine Appearance Clear Urine Color Yellow Urine Odor Strong OBJ DATA Labs 03/31/23 05:10 03/31/23 05:10 Labs: Abnormal Lab Results 03/31/23 03/31/23 03/31/23 05:10 05:10 05:10 WBC 12.7 H RBC 3.20 L Hgb 10.9 L Hct 31.5 L MCH 34.1 H Neut % (Auto) Lymph % (Auto) Lymph # (Auto) Immature Gran # Absolute Neutrophils POC VBG pH POC VBG pCO2 at Temp POC VBG pO2 POC VBG Base Excess POC Potassium POC BUN BUN 41 H Creatinine 1.4 H POC Creatinine Glucose 159 H POC Glucose Calcium 8.4 L POC WB Ioniz Calcium Phosphorus 1.8 L NT-Pro-B Natriuret Pep Total Protein 5.6 L Albumin 2.8 L Procalcitonin 1.20 H Ur Leukocyte Esterase Urine WBC Amorphous Crystals Urine Mucus 03/30/23 03/30/23 03/30/23 22:24 20:06 20:06 WBC RBC Hgb Hct MCH Neut % (Auto) Lymph % (Auto) Lymph # (Auto) Immature Gran # Absolute Neutrophils POC VBG pH POC VBG pCO2 at Temp POC VBG pO2 POC VBG Base Excess POC Potassium POC BUN 57 H BUN 46 H Creatinine 1.5 H POC Creatinine 1.7 H Glucose 137 H POC Glucose 132 H Calcium POC WB Ioniz Calcium 1.01 L Phosphorus 2.3 L NT-Pro-B Natriuret Pep Total Protein Albumin Procalcitonin Ur Leukocyte Esterase 75 A Urine WBC 6 H Amorphous Crystals Few A Urine Mucus Few A 03/30/23 03/30/23 03/30/23 19:53 19:21 19:10 WBC RBC Hgb Hct MCH Neut % (Auto) Lymph % (Auto) Lymph # (Auto) Immature Gran # Absolute Neutrophils POC VBG pH 7.47 H POC VBG pCO2 at Temp 38.2 L POC VBG pO2 21 L POC VBG Base Excess 4.0 H* POC Potassium 7.9 H* POC BUN 77 H BUN Creatinine POC Creatinine 1.7 H Glucose POC Glucose 143 H Calcium POC WB Ioniz Calcium 0.98 L Phosphorus NT-Pro-B Natriuret Pep 3301.0 H Total Protein Albumin Procalcitonin Ur Leukocyte Esterase Urine WBC Amorphous Crystals Urine Mucus 03/30/23 03/30/23 19:10 19:10 WBC 12.2 H RBC 3.50 L Hgb Hct MCH Neut % (Auto) 86.7 H Lymph % (Auto) 5.3 L Lymph # (Auto) 0.64 L Immature Gran # 0.06 H Absolute Neutrophils 10.55 H POC VBG pH POC VBG pCO2 at Temp POC VBG pO2 POC VBG Base Excess POC Potassium POC BUN BUN Creatinine POC Creatinine Glucose POC Glucose Calcium POC WB Ioniz Calcium Phosphorus NT-Pro-B Natriuret Pep Total Protein Albumin Procalcitonin 0.94 H Ur Leukocyte Esterase Urine WBC Amorphous Crystals Urine Mucus Meds: Medications Acetaminophen (Acetaminophen 325 Mg Tablet) 650 mg PO Q6HP PRN; Protocol PRN Reason: Per Pain Protocol/Fever > 101 Last Admin: 03/31/23 02:22 Dose: 650 mg Albuterol/Ipratropium (Ipratropium/Albuterol 3 Ml Ampul.Neb) 3 ml NEB Q4HP PRN PRN Reason: Shortness Of Breath Last Admin: 03/31/23 06:09 Dose: 3 ml Albuterol/Ipratropium (Ipratropium/Albuterol 3 Ml Ampul.Neb) 3 ml NEB Q8 DOUG Stop: 04/01/23 14:01 Last Admin: 03/31/23 07:11 Dose: Not Given Ceftriaxone Sodium (Ceftriaxone 1 Gm Vial) 1 gm IV Q24H DOUG Dextrose (Dextrose 50% 50 Ml Vial) 0 ml IV UD PRN PRN Reason: Per Sliding Scale Diagnostic Test (Pha) (Accu-Chek 1 Each Strip) 1 each FS ACHS DOUG Last Admin: 03/31/23 07:14 Dose: 1 each Docusate Sodium (Docusate Sodium 100 Mg Capsule) 100 mg PO BID DOUG Enoxaparin Sodium (Enoxaparin 40 Mg/0.4 Ml Syringe) 40 mg SQ DAILY DOUG Glucose (Dextrose 31 Gm Oral.Susp) 15 gm PO PRN PRN PRN Reason: Hypoglycemia Potassium Chloride 40 meq/ (Dextrose) 520 mls @ 130 mls/hr IV UD PRN PRN Reason: Potassium < 3 Magnesium Sulfate (Magnesium Sulfate) 2 gm in 50 mls @ 50 mls/hr IV UD PRN PRN Reason: Magnesium </= 1.6 Azithromycin 500 mg/ Dextrose 250 mls @ 250 mls/hr IV Q24H DOUG; Protocol Stop: 04/01/23 23:13 Last Infusion: 03/31/23 00:52 Dose: Infused Insulin Human Lispro (Insulin Lispro 1 Unit/0.01 Ml Unit) 0 unit SQ ACHS DOUG; Protocol Last Admin: 03/31/23 07:18 Dose: 2 units Labetalol HCl (Labetalol 5 Mg/Ml Ml) 0 mg IV Q2HP PRN PRN Reason: Hypertension Ondansetron HCl (Ondansetron 4 Mg/2 Ml Vial) 4 mg IV Q4HP PRN PRN Reason: Nausea And Vomiting Polyethylene Glycol (Polyethylene Glycol 3350 17 Gm Packet) 17 gm PO DAILYP PRN PRN Reason: Constipation Potassium Chloride (Potassium Chloride 20 Meq Tablet) 40 meq PO UD PRN PRN Reason: Potssium is 3-3.5 Potassium Chloride (Potassium Chloride 20 Meq Tablet) 40 meq PO UD PRN PRN Reason: Potassium < 3 Senna (Sennosides 1 Tablet) 2 tab PO DAILYP PRN PRN Reason: Constipation Sodium Chloride (0.9 % Sodium Chloride 10 Ml Syringe) 10 ml IV Q8 DOUG Last Admin: 03/31/23 04:38 Dose: 10 ml A/P Narrative A/P Narrative: A: *Acute hypoxic respiratory failure: 2/2 underlying pulm fibrosis/copd + PNA +/- ?cardiac component -on room air while in bed resting -CT chest with b/l patchy airspace dz *PNA: -strep/covid neg -elevatec PCT *Sepsis: 2/2 above -febrile o/n, leukocytosis *Pulmonary fibrosis/COPD: Follows with Dr. Lee, on prednisone *h/o CHF: *DM2: *HTN: *CKD IIIb-IV: *GERD: *Hypothyroidism: cont synthroid *CHERRY: cpap at home *Obesity pulm: BMI 31 *Generalized weakness/deconditioning: *Hypophosphatemia: P: -prn O2 and wean as able -IS/Acapella, prn nebs, RT -IV abx, pending BC/SC -CT chest for better delineation of pulmonary parenchyma -Monitor urine output/renal function -Monitor and replace electrolytes. -cont home lasix -cont prednisone -SSI -Continue home CAMILO/BB -PT/OT -suspect pt needs home O2 for chronic pulmonary conditions -ppx: Lovenox / home ppi Time Spent With Patient Time: Total time spent is greater than 50% in coordination of care (as documented) at patient's floor/unit and/or counseling patient: Subsequent: Total time with patient: 50 - 65 Minutes QUALITY VTE Deep Vein Thrombosis/Pulmonary Embolism Present on Admission: No
[2023-03-31] MEDS ORDERED: OMEPRAZOLE 20 MG CAPSULE PO PRN (07:25)
[2023-03-31] MEDS ORDERED: traMADol 50 MG TABLET PO PRN (07:36)
[2023-03-31] MEDS: DOCUSATE SODIUM 100 MG CAPSULE PO SCH ×2 (08:09→20:40)
[2023-03-31] MEDS: predniSONE 20 MG TABLET PO SCH (08:10)
[2023-03-31] MEDS: ENOXAPARIN 40 MG/0.4 ML SYRINGE SQ SCH (08:11)
[2023-03-31] MEDS: ALLOPURINOL 300 MG TABLET PO SCH (08:11)
[2023-03-31] MEDS: FUROSEMIDE 40 MG TABLET PO SCH (08:11)
[2023-03-31] MEDS: cefTRIAXone 1 GM VIAL IV SCH (08:11)
[2023-03-31] MEDS: NEUTRA PHOS 1 PACKET PO SCH ×2 (08:11→20:39)
[2023-03-31] MEDS: LEVOTHYROXINE 75 MCG TABLET PO SCH (08:11)
[2023-03-31] MEDS: METOPROLOL SUCCINATE 25 MG TAB.XL.24H PO SCH (08:11)
[2023-03-31] MEDS: LISINOPRIL 10 MG TABLET PO SCH (08:11)
[2023-03-31] MEDS: ASPIRIN 81 MG TAB.CHEW PO SCH (08:11)
[2023-03-31] MEDS: PHOSPHORUS 250 MG TABLET PO SCH ×2 (08:13→20:40)
[2023-03-31 08:27] LABS: Band Neutrophils % 2 % (0-10); Eosinophils % (Manual) 1 % (0-7); Hypochromasia 1+ (None Seen); Lymphocytes % 6 % (15-49); Monocytes % (Manual) 3 % (1-12); Platelet Estimate NORMAL (Normal); RBC Morphology ABNORMAL (Normal); Segmented Neutrophils % 88 % (38-78)
--- NOTE | 2023-03-31 09:48 | Cat Scan Report ---
CLINICAL INFORMATION: Cough hypoxia COMPARISON: Chest CT 09/21/2007 and chest x-ray 03/30/2023 TECHNIQUE: 0.625 mm axial slices were obtained from the lung apices through the bases without intravenous contrast. 2.5 mm Sagittal, coronal and axial reformatted images were processed and reviewed at bone, lung and soft tissue windows. 7 mm axial MIP images were also reconstructed to optimize pulmonary nodule detection.The exam was performed using radiation dose optimization techniques including, but not limited to, automated exposure control, adjustment of the mA and/or kV according to patient size and use of iterative reconstruction technique. FINDINGS: Pulmonary parenchymal windows show scattered interstitial fibrosis, predominantly in the periphery of both lungs, as previously seen. Moderate patchy alveolar airspace disease is scattered throughout both lower and upper lobes. While this may represent aspiration or infection. The possibly of atypical edema should be entertained. Small bilateral pleural effusions noted. The mediastinal windows show moderate enlargement of the pulmonary arteries both in the central and peripheral regions. The heart is moderately enlarged with extremely heavy calcific plaque in the coronary arteries. Thoracic aorta is normal diameter. No adenopathy seen in the mediastinal hilar or axillary regions. Moderate hiatal hernia again noted. Thyroid is normal. Small bilateral pleural effusions appreciated. Bone windows show multiple osteoporotic compression fractures throughout the thoracic spine. All of these fractures are either new or have progressed since the remote 2006 CT. Mild T3, moderate C4, severe T6, T7 T8 T9 mild T10 treated with kyphoplasty mild T11, severe T12. Kyphoplasty mild L1 and severe L2. Malunified old bilateral rib fractures appreciated. Images through the abdomen show a 3.3 cm cyst mid left kidney. IMPRESSION: 1. Mild patchy alveolar airspace disease throughout both upper and lower lobes. The pulmonary vasculature is also moderately congested. This could represent atypical edema from CHF or, alternatively, infection or aspiration. Please correlate with BNP and other parameters (patient weight, jugular venous distention, pedal edema etc.) which are either supportive or refutive of CHF. If there is any possibility of CHF, consider diuretic trial 2. Moderate hiatal hernia 3. Multiple osteoporotic compression fracture of the thoracic spine which have progressed since 2007 remote study. Bilateral malunified rib fractures also noted 4. Moderate hiatal hernia stable Interpreted and Authenticated by: Misael Monte 03/31/23
[2023-03-31] MEDS: AZITHROMYCIN 500 MG in DEXTROSE 5% IN WATER 250 ML IV SCH (20:41)
[2023-04-01] MEDS: 0.9 % SODIUM CHLORIDE 10 ML SYRINGE IV SCH (05:12)
[2023-04-01] MEDS: IPRATROPIUM/ALBUTEROL 3 ML AMPUL.NEB NEB SCH (05:12)
[2023-04-01 06:46] LABS: Basophils # (Auto) 0.02 K/mcL (0.00-0.30); Basophils % (Auto) 0.2 % (0.0-2.0); Eosinophils # (Auto) 0 K/mcL (0.00-0.70); Eosinophils % (Auto) 0 % (0.0-7.0); Hematocrit 28.4 % (34.1-44.9); Hemoglobin 9.8 g/dL (11.2-15.7); Mean Cell Volume 95.3 fL (80.0-100.0); Mean Corpuscular HGB Conc 34.5 g/dL (31.0-36.0); Mean Platelet Volume 9.8 fL (8.8-12.5); Monocytes # (Auto) 0.54 K/mcL (0.10-0.90); Monocytes % (Auto) 4.5 % (1.0-12.0); Neutrophils % (Auto) 89.6 % (38.0-78.0); Platelet Count 288 K/mcL (140-440); RBC 2.98 M/mcL (3.59-5.38); Red Cell Distribution Width 13.7 % (11.5-14.5)
[2023-04-01 07:11] LABS: ALT/SGPT 7 U/L (<40); AST/SGOT 12 U/L (<32); Albumin 2.8 gm/dL (3.2-5.2); Alkaline Phosphatase 62 U/L (39-117); Bilirubin,Total 0.3 mg/dL (0.1-1.0); Blood Urea Nitrogen 52 mg/dL (8-23); Carbon Dioxide 23 mmol/L (22-30); Chloride 100 mmol/L (96-108); Globulin 2.7 gm/dL (2.2-3.7); Glomerular Filtration Rate 32; Glucose 144 mg/dL (70-105)
[2023-04-01] MEDS: INSULIN LISPRO 1 UNIT/0.01 ML UNIT SQ SCH ×2 (07:19→11:15)
[2023-04-01] MEDS: LEVOTHYROXINE 75 MCG TABLET PO SCH (07:22)
--- NOTE | 2023-04-01 08:05 | EKG ---
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
[2023-04-01] MEDS: cefTRIAXone 1 GM VIAL IV SCH (08:36)
[2023-04-01] MEDS: ENOXAPARIN 40 MG/0.4 ML SYRINGE SQ SCH (08:36)
[2023-04-01] MEDS: ASPIRIN 81 MG TAB.CHEW PO SCH (08:36)
[2023-04-01] MEDS: predniSONE 20 MG TABLET PO SCH (08:36)
[2023-04-01] MEDS: ALLOPURINOL 300 MG TABLET PO SCH (08:37)
[2023-04-01] MEDS: LISINOPRIL 10 MG TABLET PO SCH (08:37)
[2023-04-01] MEDS: METOPROLOL SUCCINATE 25 MG TAB.XL.24H PO SCH (08:37)
[2023-04-01] MEDS: FUROSEMIDE 40 MG TABLET PO SCH (08:37)
[2023-04-01] MEDS: DOCUSATE SODIUM 100 MG CAPSULE PO SCH (08:38)
--- NOTE | 2023-04-01 10:48 | Discharge Summary ---
Discharge Provider Provider IMPORTANT FOLLOW-UP INFORMATION FOR PCP: Patient information: Note initiated : 04/01/23 at 10:44 am Service Date, if different from initiated Date: [] Patient: Enma Dodson 82 y/o F admitted on 03/30/23 for Shortness of breath. Chief Complaint: [] Date of admission: 03/30/23 22:01 Discharge date: 04/01/23 Primary care physician: Hipolito Bennett MD Attending physician on admission: Rigo Sanders Consults: 03/30/23 Consult to Physician [CONS] Stat Comment: Consulting Provider: Rigo Sanders Reason For Exam: Physician to Consult Attending physician on discharge: [place] Pui COURSE Hospital Course Hospital course: Ms. Dodson is a 82 year old F Presents ED with generalized weakness and shortness of breath. This is been going on for about a week. She first saw her progressive assembler and fitter and was sent to the ER over concerns for possible CHF. She went to the ED and was evaluated and told to increase her Lasix for a few days. She still feels short of breath so came back into the ED. In the ED she was evaluated she was fine on room air as far as her oxygen but when she ambulated she dropped down to 85% per my discussion with the ER physician and a tech 5 minutes for to come up to 90. Family is concerned about her going home. She is afebrile and has not complained of fevers but complains of chills. She does also have had nausea and vomiting she has a headache. She is got rhinorrhea and sinus congestion. She has had a productive cough mostly of clear sputum but today she had thick green sputum per her granddaughter. She denies any increased water weight. Chest x-ray shows fibrosis similar to previous no obvious infiltrate or edema. She had a cardiac spec study in May 2022 which showed an EF of 45%, an echo 5-6 weeks prior to that showed ejection fraction of 60%. She had a rapid flu and COVID in ED which were negative. She had a mild leukocytosis at 12.7. Her procalcitonin ED was elevated at 0.9. She was on oxygen in the past that was years ago but has not had been on it in a while. Although she states over the past months she feels like she has been more short of breath. 5/22 Patient denies fever chills nausea vomiting headache this morning. However the nurse did record a fever overnight. Patient says her cough seems to be loosening up a bit. No noticeable shortness of breath while at rest in bed. CT chest pending. Leukocytosis similar to yesterday. Hypophosphatemia 04/01: Discharged home with Rx sent to pharmacy. 1-2 week PCP follow up appointments made for patient. All questions were answered prior to patient being physically discharged. Discharge diagnosis: Pneumonia, COPD with exacerbation Time Spent with Patient Time attestation: Total time spent providing and/or coordinating discharge services: Time spent: Less than 30 minutes EXAM Constitutional Vitals: Temp Pulse Resp BP Pulse Ox O2 Del Method 36.4 C 86 16 111/61 93 Room Air 04/01/23 07:00 04/01/23 07:00 04/01/23 07:00 04/01/23 07:00 04/01/23 07:00 04/01/23 07:00 General appearance: cooperative and no acute distress Head Head exam: Present atraumatic and normocephalic Eye Eye exam: Present EOMI and PERRL ENT ENT exam: Present mucous membranes moist, normal exam and normal external ear exam Neck Neck exam: Present normal inspection; Absent lymphadenopathy, tenderness or thyromegaly Respiratory Respiratory exam: Present rhonchi; Absent accessory muscle use, respiratory distress or wheezes Cardiovascular Cardiovascular exam: Present normal rate and rhythm; Absent JVD GI/Abdominal GI/Abdominal exam: Present normal bowel sounds and soft; Absent organomegaly or tenderness Extremities Exam Extremities exam: Present full ROM, normal capillary refill and normal inspection; Absent tenderness Neurological Exam Neurological exam: Present alert, CN II-XII intact and oriented X3; Absent motor sensory deficit Psychiatric Psychiatric exam: Present normal affect and normal mood; Absent anxious or depressed Skin Skin exam: Present dry and intact Discharge Data Data Completed and Pending Labs on day of discharge: Labs from last 24 hours 04/01/23 04/01/23 04/01/23 05:28 05:28 05:28 WBC 12.0 H RBC 2.98 L Hgb 9.8 L Hct 28.4 L MCV 95.3 MCH 32.9 MCHC 34.5 RDW 13.7 Plt Count 288 MPV 9.8 Immature Gran % (Auto) 0.7 H Neut % (Auto) 89.6 H Lymph % (Auto) 5.0 L Placer % (Auto) 4.5 Eos % (Auto) 0 Baso % (Auto) 0.2 Lymph # (Auto) 0.60 L Placer # (Auto) 0.54 Eos # (Auto) 0 Baso # (Auto) 0.02 Immature Gran # 0.08 H Absolute Neutrophils 10.75 H Sodium 137 Potassium 3.8 Chloride 100 Carbon Dioxide 23 Anion Gap 14.0 BUN 52 H Creatinine 1.5 H GFR Calculation 32 Glucose 144 H Calcium 8.0 L Total Bilirubin 0.3 AST 12 ALT 7 Alkaline Phosphatase 62 Total Protein 5.5 L Albumin 2.8 L Globulin 2.7 Albumin/Globulin Ratio 1.0 Procalcitonin 1.44 H Preliminary micro results at discharge 03/30/23 22:54 Blood Culture - Preliminary Blood 03/30/23 22:43 Blood Culture - Preliminary Blood Discharge Plan Patient/Caregiver Discharge Instructions Activity: increase activity as tolerated Diet: Consistent Carbohydrate Prescriptions: New amoxicillin-pot clavulanate [Augmentin XR] 1,000-62.5 mg tablet extended release 12 hr 1 tab PO BID Qty: 14 0RF Continued potassium chloride 10 mEq tablet extended release 10 meq PO QDAY Qty: 90 1RF metformin 500 mg tablet extended release 24 hr 500 mg PO QPM Qty: 90 1RF lisinopril 10 mg tablet 10 mg PO QDAY Qty: 90 4RF levothyroxine 75 mcg tablet 75 mcg PO QAM Qty: 90 1RF prednisone 5 mg tablet 5 mg PO QDAY Rx Instructions: administer with food or milk (DME) Four-wheeled walker with seat See Rx Instructions .Route .MEDSUPPLY Qty: 1 0RF Rx Instructions: As directed tramadol 50 mg tablet 50 - 100 mg PO Q4HP PRN (Reason: Pain) Qty: 60 0RF coenzyme Q10 300 mg capsule 300 mg PO QDAY cyanocobalamin (vitamin B-12) [Vitamin B-12] 1,000 mcg tablet 5,000 mcg PO QDAY allopurinol 300 mg tablet 300 mg PO QDAY Aspirin 81 mg PO QDAY docusate sodium 100 mg capsule 100 mg PO BID PRN (Reason: Constipation) metoprolol succinate 25 mg Tablet Extended Release 24 Hr 25 mg PO QDAY cholecalciferol (vitamin D3) [Vitamin D3] 25 mcg (1,000 unit) Capsule 25 mcg PO QDAY acetaminophen 500 mg Tablet 1,000 mg PO Q8 Qty: 90 0RF omeprazole 20 mg capsule,delayed release(DR/EC) 20 mg PO QDAY PRN (Reason: Heartburn) Rx Instructions: take 30 minutes prior to supper. Prolia 60 mg/mL Syringe 60 mg SUBCUT .[id number] polyethylene glycol 3350 [HealthyLax] 17 gram Powder In Packet 17 g PO DAILYP PRN (Reason: Constipation) Qty: 14 0RF furosemide [Lasix] 40 mg tablet 60 mg PO QDAY Follow Up Plan Follow up with: Hipolito Bennett MD [Primary Care Provider] - Patient Disposition: Home, Self-Care Prognosis: Fair Rehab Potential: Good I certify that the patient requires SNF services: No Overall status at discharge: patient is progressing back to baseline Discharge Orders: Discharge Order (Routine); Ordered 04/01/23 Ordered By: Roderick MANDEL VTE Deep Vein Thrombosis/Pulmonary Embolism Present on Admission: No
== END 2023-04-01 13:02 | disposition home or self-care (01) | DRG 190 ==
LOC: ED 18:39 → MEDSUR 22:01
PROVIDERS: ADMIT Internal Medicine; ATTEND Internal Medicine